=== PATIENT | female | born 1940 | race Caucasian/White ===

== ENCOUNTER 2016-05-14 16:41 | Inpatient (IN) | payer MEDICARE, BC ==
--- NOTE | ~2016-05-14 | DS ---
Discharge Summary [facility] [address] [place]. [address] NAME: KIMBERLY ISLAS : 40 STATUS : DIS IN PAT#: [id number] AGE: 76 ADM/REG DATE : 05/14/16 MR#: [id number] REPORT SERV DATE: 05/29/16 DICTATED BY: SERGEY TODD DATE: 05/28/16 REPORT STATUS : Draft TRANSCRIBED BY: MODChoco DATE: 05/28/16 Data Collection from hospitalization DISCHARGE DIAGNOSES: 1. Recurrent atrial fibrillation. 2. Fluid volume overload, secondary to severe constipation. 3. Large right pleural effusion. 4. Stage 3 chronic kidney disease. 5. Hypertension. 6. History of urosepsis. CONSULTATIONS: None. PROCEDURES: Transesophageal echocardiogram and cardioversion on 05/17/2016, pulmonary function study on 05/17/2016. DISCHARGE MEDICATIONS: Cordarone 200 mg every morning, Eliquis 5 mg twice a day, Wellbutrin SR 150 mg twice a day, Taztia XT 180 mg every morning, ferrous sulfate 325 mg after breakfast and lunch, Lasix 40 mg every morning, Mag-Ox 400 mg twice a day, Lopressor 50 mg three times a day, Zofran 4-8 mg three times a day as needed, Aldactone 25 mg daily, Restoril 30 mg at bedtime, probiotic one capsule twice a day. She was instructed not to continue warfarin. CONDITION AT DISCHARGE: Stable. DISPOSITION: The patient was discharged home on a low-sodium, low-cholesterol cardiac diet with activities as instructed. She will follow up with dc 06/06/2016, and will follow up with Dr. Heather Clemente as instructed. Outpatient lab work is scheduled 1 week following discharge. HOSPITAL COURSE: This is a 76-year-old female who has a history of paroxysmal atrial fibrillation. She presented to the [facility] Emergency Room with complaints of shortness of breath. She was found to be in atrial fibrillation with rapid ventricular response. She also had a large right pleural effusion. She has some complaints of a cough, but no myalgias or fever and had a normal white blood cell count, but nothing to suggest that she had evidence for pneumonia. In February 2016, she was at [facility] with urosepsis. In that setting, she developed atrial fibrillation with rapid ventricular response and underwent transesophageal echocardiogram and cardioversion. Apparently, at that time, she was taking amiodarone. She was to see me and was noted to be in recurrent atrial fibrillation with rapid ventricular response. Apparently, the patient was not taking her medications appropriately, and these were restarted with the plan for followup. In the interim, she presented to [facility] with a pleural effusion and shortness of breath and rapid ventricular response. On the evening of admission, she received IV Lasix and oral AV john suppressants were started. Her for rate was better controlled, and she had good diuresis overnight. She was admitted to the hospital at this time for further evaluation and treatment. Upon admission, her INR level was 1.4, creatinine was 1.2, troponin was less than 0.02. Discharge Summary [facility] [address] [place]. [address] NAME: KIMBERLY ISLAS : 40 STATUS : DIS IN PAT#: [id number] AGE: 76 ADM/REG DATE : 05/14/16 MR#: [id number] REPORT SERV DATE: 05/29/16 DICTATED BY: SERGEY TODD DATE: 05/28/16 REPORT STATUS : Draft TRANSCRIBED BY: SERAFIN DATE: 05/28/16 Amiodarone was continued. We will continue current rate control agents and plan on repeat cardioversion in the setting of amiodarone. This will likely need to be done with transesophageal echocardiogram. Her PT/INR was subtherapeutic. Eliquis was going to be started, warfarin was discontinued, diuresis had been established, and congestive heart failure and pleural effusion had abated. On the , pulmonary function studies were performed. This was an abnormal study. 2 L of oxygen therapy was seen to partially treat the patient's hypoxia. However, outpatient polysomnogram was recommended in case the patient has underlying sleep apnea. The patient then underwent transesophageal echocardiogram and cardioversion by Dr. Zak Farah. There was no evidence of left atrial appendage or thrombus. There was normal left ventricular systolic function with ejection fraction 60%. There was xepb-kl-mxzdnpxb biatrial enlargement without significant valvular disease. There was successful cardioversion to a normal sinus rhythm. Following day, she had no chest pain or shortness of breath. She was in a regular sinus rhythm with first degree AV block. Echocardiogram was performed. Her current therapy was continued. On 05/19/2016, she remained in a regular sinus rhythm on Eliquis. Her ejection fraction was 60%. Over the next couple of days, discharge planning was performed. She felt like she was back to her baseline. She had minimal improvement of her pleural effusions secondary to her acute diastolic congestive heart failure. Oral diuretics were continued. On 05/21/2016, she had no new complaints. She denied chest pain, palpitations, or shortness of breath. Eliquis was continued as well as metoprolol and diltiazem. Amiodarone would be continued for rhythm control. Discharge instructions were given. Due to her improved and stable condition, she was discharged home with the above-stated instructions. Information collected by: Mikayla Babin I submit the above information as my discharge summary. TG/MODL Sergey Todd MD / [id number] CC: MD Heather Cantu M.D.
--- NOTE | ~2016-05-14 | OP ---
Record Of [facility] [address] [place]. [address] NAME: KIMBERLY ISLAS : 40 STATUS : ADM IN PAT#: [id number] AGE: 76 ADM/REG DATE : 05/14/16 MR#: [id number] REPORT SERV DATE: 05/20/16 DICTATED BY: ZAK DOWNING DATE: 05/17/16 REPORT STATUS : Draft TRANSCRIBED BY: MODChoco DATE: 05/17/16 DATE OF PROCEDURE: 05/17/2016 TRANSESOPHAGEAL ECHOCARDIOGRAM AND CARDIOVERSION REPORT INDICATIONS: Atrial fibrillation. PROCEDURE DESCRIPTION: After informed consent, the patient was sedated with propofol by the Anesthesia Department. The transesophageal probe was placed on the first attempt. After removal of the transesophageal probe, a single defibrillation was delivered. There were no immediate complications. TRANSESOPHAGEAL ECHOCARDIOGRAM: 2D: 1. The aortic valve is trileaflet and opens adequately. 2. There is no evidence of left atrial appendage thrombus. 3. The mitral valve appears structurally normal. 4. Left ventricular size and systolic function appear preserved with EF 60%. 5. There is moderate left atrial enlargement. 6. The right ventricle appears normal in size. 7. The tricuspid valve is structurally normal. 8. There is hmyc-ju-ovueykpm right atrial enlargement. 9. There is no evidence of pericardial effusion. 10.There is mubt-jz-brvpkhjc diffuse aortic atherosclerosis noted. 11.The ascending aorta appears normal in size. DOPPLER: Pulse wave Doppler in the left atrial appendage is less than 40 cm/second. COLOR FLOW: There is innfd-fv-krjf aortic, mitral, and tricuspid regurgitation. CARDIOVERSION: A single synchronized 200-joule biphasic defibrillation was delivered. Atrial fibrillation converted to normal sinus rhythm. IMPRESSION: 1. No evidence of left atrial appendage thrombus. 2. Normal left ventricular systolic function with ejection fraction 60%. 3. Rexp-nd-ukgoizgi biatrial enlargement without significant valvular disease. 4. Successful cardioversion to normal sinus rhythm. QUYNH/SERAFIN Zak Downing M.D. Record Of [facility] [address] [place]. [address] NAME: KIMBERLY ISLAS : 40 STATUS : ADM IN PAT#: [id number] AGE: 76 ADM/REG DATE : 05/14/16 MR#: [id number] REPORT SERV DATE: 05/20/16 DICTATED BY: ZAK DOWNING DATE: 05/17/16 REPORT STATUS : Draft TRANSCRIBED BY: BRADL DATE: 05/17/16 / [id number] CC: MD Heather Cantu M.D.
--- NOTE | ~2016-05-14 | PUL ---
[address] [place]. [address] NAME: KIMBERLY ISLAS : 40 STATUS : DIS IN PAT#: [id number] AGE: 76 ADM/REG DATE : 05/14/16 MR#: [id number] REPORT SERV DATE: 05/28/16 DICTATED BY: BOY MOSQUEDA DATE: 05/27/16 REPORT STATUS : Draft TRANSCRIBED BY: MODL DATE: 05/27/16 PULMONARY FUNCTION TEST OVERNIGHT PULSE OXIMETRY TEST: Overnight pulse oximetry, started on room air. The patient was started on oxygen therapy around midnight. Total recording time 4 hours 56 minutes, mean pulse 69, mean oxygen saturation 91%. Time with oxygen saturation less than 88%, 50 minutes, 17.1% of the night. Upon review of the pulse ox data, the patient had significant desaturation until oxygen therapy was started, there was concern of underlying sleep apnea in this patient. INTERPRETATION: This is an abnormal study, 2 L of oxygen therapy is seen to partially treat this patient's hypoxia, however, recommend outpatient polysomnogram in case this patient has underlying sleep apnea. HFQ/MODL Boy Mosqueda MD / [id number] CC: MD Heather Cantu M.D.
--- NOTE | ~2016-05-14 | HP ---
History And Physical [address] [place]. [address] NAME: KIMBERLY ISLAS : 40 STATUS : ADM IN PAT#: [id number] AGE: 76 ADM/REG DATE : 05/14/16 MR#: [id number] REPORT SERV DATE: 05/15/16 DICTATED BY: LUIS M PRINCE DATE: 05/15/16 REPORT STATUS : Draft TRANSCRIBED BY: MODChoco DATE: 05/15/16 DATE OF ADMISSION: 05/14/2016 REASON FOR ADMISSION: This is a Cardiology admission H and P. REASON FOR ADMISSION: Atrial fibrillation, rapid ventricular response and right pleural effusion consistent with congestive heart failure. HISTORY OF PRESENT ILLNESS: The patient is a pleasant 76-year-old woman with a known history of paroxysmal atrial fibrillation. She presented to the [facility] Emergency Room yesterday with complaints of shortness of breath. She was found to be in atrial fibrillation with rapid ventricular response and had a large right pleural effusion. She had some complaints of cough, but no myalgias or fever and normal white blood cell count, nothing to suggest that she had evidence for pneumonia. She was admitted for further workup and treatment. As mentioned, the patient has a known history of paroxysmal atrial fibrillation and has seen Dr. Chavez in the past. In 02/2016, she was in [facility] with urosepsis. In that setting, she developed atrial fibrillation with rapid ventricular response and underwent [facility] cardioversion. Apparently at that time, the patient was taking amiodarone. She is to see her new turntable man Dr. Todd in [place] and was noted to be in recurrent atrial fibrillation with rapid ventricular response. Apparently, the patient was not taking her medications appropriately and these were restarted with a plan for followup. In the interim, she presented to [facility] with the pleural effusion and shortness of breath and rapid ventricular response. Last evening, she received IV Lasix and her oral AV john suppressants were restarted. Her rate is better controlled this morning. She had good diuresis overnight and her symptoms have improved. PAST MEDICAL HISTORY: 1. Notable for atrial fibrillation that has been paroxysmal but at times persistent and has required cardioversion on two separate occasions in the past. 2. Stage III chronic kidney disease. 3. Recent urosepsis secondary to nephrolithiasis. 4. Hypertension. 5. Echocardiogram revealing mild concentric LVH, normal LV systolic function. No history of coronary disease. HOME MEDICATIONS: Include amiodarone 200 mg daily, Wellbutrin, diltiazem, iron, Lasix 40 mg daily, magnesium, metoprolol, Zofran, Restoril, and warfarin. FAMILY HISTORY: Negative for premature coronary artery disease or sudden cardiac . SOCIAL HISTORY: Negative for tobacco or alcohol. REVIEW OF SYSTEMS: As noted above. All other systems reviewed and negative. History And Physical [address] [address] NAME: KIMBERLY ISLAS : 40 STATUS : ADM IN PAT#: [id number] AGE: 76 ADM/REG DATE : 05/14/16 MR#: [id number] REPORT SERV DATE: 05/15/16 DICTATED BY: LUIS M PRINCE DATE: 05/15/16 REPORT STATUS : Draft TRANSCRIBED BY: SERAFIN DATE: 05/15/16 PHYSICAL EXAMINATION: VITAL SIGNS: She has some shortness of breath, but has improved. The pulse is 100, irregularly irregular, blood pressure of 120/70, respirations 16. GENERAL: Well developed, well nourished. HEENT: No icterus. Good dentition. NECK: Supple. No masses or thyromegaly LUNGS: Some decreased breath sounds at the right lung base. COR: Normal S1, S2. No S3 or S4. No murmurs, clicks, rubs. No JVD ABD: Soft, nondistended, nontender, no hepatosplenomegaly. EXT: No clubbing, cyanosis or edema. Peripheral pulses 2+/=bilaterally. SKIN: Warm and dry. No visible lesions. MS: Chest wall without deformity, no obvious clavicular fractures. NEURO/PSYCH: Oriented X3. No anxiety or depression. IMAGING PROCEDURE: EKG shows atrial fibrillation, heart rate of 90 beats per minute. Normal QRS, QT intervals, nonspecific ST-T wave abnormalities. No evidence for ischemia or infarction. LABORATORY VALUES: INR is 1.4, white count 8.9, hematocrit 36, platelet count 229,000, electrolytes within normal limits, creatinine of 1.2, BUN 17, glucose of 140, troponin is less than 0.02. IMPRESSION: Recurrent atrial fibrillation with rapid ventricular response although rate seems to be better controlled, currently on AV john suppressants. She is also taking amiodarone. She has evidence for congestive heart failure with right pleural effusion. This seems to be more likely related to congestive heart failure than other potential sources of effusion. Her white count is within normal limits. She is not having fevers or myalgias consistent with pneumonia. RECOMMENDATION: 1. Treatment of atrial fibrillation. Continue amiodarone. Continue current rate control agents and plan on repeat cardioversion in the setting of amiodarone. Will likely need to be done with the transesophageal echocardiogram as per PT/INR is subtherapeutic. In terms of anticoagulation, subtherapeutic PT/INR would recommend we start Eliquis 5 mg b.i.d. Will DC warfarin. Would recommend cardioversion. Diuresis has been established and congestive heart failure and pleural effusion have abated. GUERRERO/SERAFIN Luis M Prince M.D. / [id number] CC: History And Physical [address] [address] NAME: KIMBERLY ISLAS : 40 STATUS : ADM IN [facility]#: [id number] AGE: 76 ADM/REG DATE : 05/14/16 MR#: [id number] REPORT SERV DATE: 05/15/16 DICTATED BY: LUIS M PRINCE DATE: 05/15/16 REPORT STATUS : Draft TRANSCRIBED BY: SERAFIN DATE: 05/15/16 MD Heather Cantu M.D.
[~2016-05-14 16:41] MED LIST: BUDEPRION150 MG PO; C25 PO; DIGITEK0.25 MG PO; DRONED400 PO; FERROUS SULF325 M1 PO; FOSAMAX70 MG PO; IMOD PO; LEXAPRO10 PO; LOP25 PO; PRADAXA150 MG PO; PRIN10 PO; REST15 PO; TUMSROLL PO; VITAMIN D1000 UNI1 PO; WELCHOL625 MG OR; WELLXL150 PO; ZANTAC150 MG PO
[2016-05-14 17:08] LABS: BASOPHILS 0.1 %; BASOPHILS ABSOLUTE 0.01 10/3/uL (0.0-0.16); EOSINOPHILS 1.9 %; EOSINOPHILS ABSOLUTE 0.17 10/3/uL (0.0-0.53); ER CBC TAT 0 Hrs 05 Mins; HEMATOCRIT 36.6 % (36.0-48.0); HEMOGLOBIN 11.5 g/dL (12.0-16.0); IMMATURE GRANULOCYTES 0.4 %; IMMATURE GRANULOCYTES ABSOLUTE 0.04 10/3/uL (0.0-0.11); LYMPHOCYTES 16.1 %; LYMPHOCYTES ABSOLUTE 1.43 10/3/uL (0.67-4.30); MEAN CORPUS HGB CONC 31.4 g/dL (32.0-36.0); MEAN CORPUSCULAR HEMOGLOB 30.6 pg (26.0-34.0); MEAN CORPUSCULAR VOLUME 97.3 fL (80-100); MEAN PLATELET VOLUME 11.9 fL (9.2-13.0); MONOCYTES 10.4 %; MONOCYTES ABSOLUTE 0.93 10/3/uL (0.21-1.20); NEUTROPHILS 71.1 %; NEUTROPHILS ABSOLUTE 6.32 10/3/uL (2.02-8.40); WHITE BLOOD CELLS 8.9 10/3/uL (4.5-10.5)
[2016-05-14 17:10] LABS: MANUAL DIFF NO %; PLATELET COUNT 229 10/3/uL (150-400); RED CELL COUNT 3.76 10/6/uL (4.0-5.6)
[2016-05-14 17:22] LABS: INTERNATIONAL NORMAL RATI 1.4 UNITS (-); PARTIAL THROMBO TIME 35.9 SEC (22.5-37.2)
[2016-05-14 17:23] LABS: CALCIUM, SERUM 8.5 MG/DL (8.5-10.4); CHEST PAIN PROFILE TAT 0 Hrs 20 Mins; CHLORIDE, SERUM 104 MMOL/L (96-112); CO2 (CARBON DIOXIDE) 28 MMOL/L (24-34); CREATININE 1.26 MG/DL (0.55-1.02); GFR AFRICAN AMERICAN 48 ML/MIN (>=60); GFR NON AFRICAN AMERICAN 41 ML/MIN (>=60); POTASSIUM, SERUM 4.2 MMOL/L (3.5-5.3); SODIUM, SERUM 140 MMOL/L (135-148); TROPONIN I <0.02 NG/ML (<0.05)
[2016-05-14 17:24] LABS: BUN (BLOOD UREA NITROGEN) 17 MG/DL (6-23); GLUCOSE, SERUM 140 MG/DL (60-99)
[2016-05-14 17:30] LABS: PROTIME (NOT ORD) 17.2 SEC (12.0-14.5)
[2016-05-14] MEDS ORDERED: LOP50 PO (21:05)
[2016-05-14] MEDS ORDERED: PROBIOTIC OTC PO (21:05)
[2016-05-14] MEDS ORDERED: CORDARONE PO (21:05)
[2016-05-14] MEDS ORDERED: FERROUS SULF325 M1 PO (21:06)
[2016-05-14] MEDS ORDERED: L40 PO (21:06)
[2016-05-14] MEDS ORDERED: RESTORIL30 MG PO (21:06)
[2016-05-14] MEDS ORDERED: C2 PO (21:06)
[2016-05-14] MEDS ORDERED: ZOFRAN4 PO (21:07)
[2016-05-14] MEDS ORDERED: TAZTIA XT PO (21:07)
[2016-05-14] MEDS ORDERED: WELLSR150 PO (21:08)
[2016-05-14] MEDS ORDERED: MAGOX4 PO (21:08)
[2016-05-15 05:55] LABS: BUN (BLOOD UREA NITROGEN) 16 MG/DL (6-23); CALCIUM, SERUM 8.4 MG/DL (8.5-10.4); CHLORIDE, SERUM 102 MMOL/L (96-112); CO2 (CARBON DIOXIDE) 30 MMOL/L (24-34); CREATININE 1.27 MG/DL (0.55-1.02); GFR AFRICAN AMERICAN 47 ML/MIN (>=60); GFR NON AFRICAN AMERICAN 41 ML/MIN (>=60); POTASSIUM, SERUM 3.8 MMOL/L (3.5-5.3); SODIUM, SERUM 141 MMOL/L (135-148)
[2016-05-15 05:57] LABS: GLUCOSE, SERUM 100 MG/DL (60-99)
[2016-05-17 12:54] LABS: BASOPHILS 0.3 %; BASOPHILS ABSOLUTE 0.03 10/3/uL (0.0-0.16); EOSINOPHILS 2.5 %; EOSINOPHILS ABSOLUTE 0.24 10/3/uL (0.0-0.53); HEMOGLOBIN 13.3 g/dL (12.0-16.0); IMMATURE GRANULOCYTES 0.5 %; IMMATURE GRANULOCYTES ABSOLUTE 0.05 10/3/uL (0.0-0.11); LYMPHOCYTES 18.7 %; LYMPHOCYTES ABSOLUTE 1.78 10/3/uL (0.67-4.30); MEAN CORPUS HGB CONC 31.8 g/dL (32.0-36.0); MEAN CORPUSCULAR VOLUME 97.4 fL (80-100); MEAN PLATELET VOLUME 12.1 fL (9.2-13.0); MONOCYTES 10.2 %; MONOCYTES ABSOLUTE 0.97 10/3/uL (0.21-1.20); NEUTROPHILS 67.8 %; NEUTROPHILS ABSOLUTE 6.45 10/3/uL (2.02-8.40); PLATELET COUNT 258 10/3/uL (150-400); RBC DISTRIBUTION WIDTH 17.2 % (12.0-16.0); RED CELL COUNT 4.29 10/6/uL (4.0-5.6); WHITE BLOOD CELLS 9.5 10/3/uL (4.5-10.5)
[2016-05-17 12:55] LABS: HEMATOCRIT 41.8 % (36.0-48.0); MANUAL DIFF NO %
[2016-05-17 13:09] LABS: CALCIUM, SERUM 8.9 MG/DL (8.5-10.4); CHLORIDE, SERUM 99 MMOL/L (96-112); CO2 (CARBON DIOXIDE) 31 MMOL/L (24-34); GFR AFRICAN AMERICAN 36 ML/MIN (>=60); GFR NON AFRICAN AMERICAN 31 ML/MIN (>=60); POTASSIUM, SERUM 3.8 MMOL/L (3.5-5.3); SODIUM, SERUM 139 MMOL/L (135-148)
[2016-05-17 13:11] LABS: BUN (BLOOD UREA NITROGEN) 24 MG/DL (6-23); GLUCOSE, SERUM 163 MG/DL (60-99)
[2016-05-18 05:28] LABS: BASOPHILS 0.1 %; BASOPHILS ABSOLUTE 0.01 10/3/uL (0.0-0.16); EOSINOPHILS 3.4 %; EOSINOPHILS ABSOLUTE 0.24 10/3/uL (0.0-0.53); HEMOGLOBIN 11.2 g/dL (12.0-16.0); IMMATURE GRANULOCYTES 0.4 %; IMMATURE GRANULOCYTES ABSOLUTE 0.03 10/3/uL (0.0-0.11); LYMPHOCYTES 20.6 %; LYMPHOCYTES ABSOLUTE 1.46 10/3/uL (0.67-4.30); MEAN CORPUS HGB CONC 30.9 g/dL (32.0-36.0); MEAN CORPUSCULAR HEMOGLOB 29.7 pg (26.0-34.0); MONOCYTES 14.1 %; NEUTROPHILS 61.4 %; NEUTROPHILS ABSOLUTE 4.34 10/3/uL (2.02-8.40); PLATELET COUNT 222 10/3/uL (150-400); RBC DISTRIBUTION WIDTH 17.3 % (12.0-16.0); RED CELL COUNT 3.77 10/6/uL (4.0-5.6); WHITE BLOOD CELLS 7.1 10/3/uL (4.5-10.5)
[2016-05-18 05:32] LABS: HEMATOCRIT 36.2 % (36.0-48.0); MANUAL DIFF NO %
[2016-05-18 05:46] LABS: BUN (BLOOD UREA NITROGEN) 24 MG/DL (6-23); CALCIUM, SERUM 9.3 MG/DL (8.5-10.4); CHLORIDE, SERUM 99 MMOL/L (96-112); CO2 (CARBON DIOXIDE) 30 MMOL/L (24-34); CREATININE 1.52 MG/DL (0.55-1.02); GFR AFRICAN AMERICAN 38 ML/MIN (>=60); GFR NON AFRICAN AMERICAN 33 ML/MIN (>=60); SODIUM, SERUM 139 MMOL/L (135-148)
[2016-05-18 05:47] LABS: GLUCOSE, SERUM 119 MG/DL (60-99); POTASSIUM, SERUM 3.9 MMOL/L (3.5-5.3)
[2016-05-19 06:17] LABS: BUN (BLOOD UREA NITROGEN) 21 MG/DL (6-23); CHLORIDE, SERUM 102 MMOL/L (96-112); CO2 (CARBON DIOXIDE) 27 MMOL/L (24-34); CREATININE 1.32 MG/DL (0.55-1.02); GFR AFRICAN AMERICAN 45 ML/MIN (>=60); GFR NON AFRICAN AMERICAN 39 ML/MIN (>=60); GLUCOSE, SERUM 114 MG/DL (60-99); SODIUM, SERUM 138 MMOL/L (135-148)
[2016-05-20 05:53] LABS: CALCIUM, SERUM 9.5 MG/DL (8.5-10.4); CHLORIDE, SERUM 101 MMOL/L (96-112); CO2 (CARBON DIOXIDE) 31 MMOL/L (24-34); CREATININE 1.33 MG/DL (0.55-1.02); GFR AFRICAN AMERICAN 45 ML/MIN (>=60); GFR NON AFRICAN AMERICAN 39 ML/MIN (>=60); GLUCOSE, SERUM 105 MG/DL (60-99); POTASSIUM, SERUM 4.4 MMOL/L (3.5-5.3); SODIUM, SERUM 141 MMOL/L (135-148)
[2016-05-20 06:00] LABS: BUN (BLOOD UREA NITROGEN) 17 MG/DL (6-23)
[2016-05-21 05:12] LABS: BASOPHILS 0.1 %; BASOPHILS ABSOLUTE 0.01 10/3/uL (0.0-0.16); EOSINOPHILS 3.6 %; EOSINOPHILS ABSOLUTE 0.26 10/3/uL (0.0-0.53); HEMATOCRIT 36.8 % (36.0-48.0); HEMOGLOBIN 11.7 g/dL (12.0-16.0); IMMATURE GRANULOCYTES ABSOLUTE 0.07 10/3/uL (0.0-0.11); LYMPHOCYTES 26.4 %; LYMPHOCYTES ABSOLUTE 1.92 10/3/uL (0.67-4.30); MANUAL DIFF NO %; MEAN CORPUS HGB CONC 31.8 g/dL (32.0-36.0); MEAN CORPUSCULAR HEMOGLOB 30.5 pg (26.0-34.0); MEAN CORPUSCULAR VOLUME 95.8 fL (80-100); MEAN PLATELET VOLUME 11.6 fL (9.2-13.0); MONOCYTES 9.6 %; NEUTROPHILS 59.3 %; NEUTROPHILS ABSOLUTE 4.31 10/3/uL (2.02-8.40); PLATELET COUNT 234 10/3/uL (150-400); RBC DISTRIBUTION WIDTH 16.4 % (12.0-16.0); RED CELL COUNT 3.84 10/6/uL (4.0-5.6); WHITE BLOOD CELLS 7.3 10/3/uL (4.5-10.5)
[2016-05-21 05:37] LABS: BUN (BLOOD UREA NITROGEN) 17 MG/DL (6-23); CALCIUM, SERUM 8.8 MG/DL (8.5-10.4); CHLORIDE, SERUM 99 MMOL/L (96-112); CO2 (CARBON DIOXIDE) 28 MMOL/L (24-34); CREATININE 1.36 MG/DL (0.55-1.02); GFR AFRICAN AMERICAN 44 ML/MIN (>=60); GFR NON AFRICAN AMERICAN 38 ML/MIN (>=60); SODIUM, SERUM 137 MMOL/L (135-148)
[2016-05-21 05:38] LABS: GLUCOSE, SERUM 134 MG/DL (60-99); POTASSIUM, SERUM 3.5 MMOL/L (3.5-5.3)
[2016-05-21] MEDS ORDERED: ELIQUIS 5 MG TAB5 MG PO (10:21)
[2016-05-21] MEDS ORDERED: SPIRO25 PO (10:24)
== END 2016-05-21 11:30 | disposition home or self-care (01) | DRG 308 ==
LOC: ER 16:41 → 5NO 20:40
PROVIDERS: Hospitalist; Internal Medicine Cardiovascular Disease; Nurse Practitioner Family
PROC: B246ZZ4 Ultrasonography of Right and Left Heart, Transesophageal (ICD-10-PCS; principal; 2016-05-17)
PROC: 5A2204Z Restoration of Cardiac Rhythm, Single (ICD-10-PCS; 2016-05-17)
DX: I48.0 Paroxysmal atrial fibrillation (principal); I50.31 Acute diastolic (congestive) heart failure; J90 Pleural effusion, not elsewhere classified; N18.3 Chronic kidney disease, stage 3 (moderate); I13.0 Hypertensive heart and chronic kidney disease with heart failure and stage 1 through stage 4 chronic kidney disease, or unspecified chronic kidney disease
CPT/HCPCS: 71020; 80048; 83735; 83880; 84132; 84484; 85025; 85610; 85730; 92960; 93005; 93312; 93320; 93325; 94762; 99285; A9270-GY; C8929; Q9957